=== PATIENT | male | born 1990 | race Caucasian/White ===

== ENCOUNTER 2023-11-06 21:29 | Emergency (ER) | payer MEDICAID ==
[~2023-11-06] VITALS: Ht 177.8 cm; Wt 78.3 kg
[2023-11-06 21:31] VITALS: BP 156/98; PULSE 93; RESP 17; TEMP 97.1; O2SAT 100
== END 2023-11-06 23:12 | disposition left against medical advice (07) ==
LOC: ER 21:30
DX: R07.81 Pleurodynia (principal); Z53.21 Procedure and treatment not carried out due to patient leaving prior to being seen by health care provider
CPT/HCPCS: 99281

== ENCOUNTER 2025-05-19 09:57 | Emergency (ER) | payer MEDICAID ==
[~2025-05-19] VITALS: Ht 177.8 cm; Wt 84.5 kg
[2025-05-19 10:38] LABS: MEAN PLATELET VOLUME 8.5 FL (7.4-10.4); RED CELL DISTRIBUTION WIDTH 13.1 % (11.5-14.5)
[2025-05-19 10:52] LABS: CREATININE 0.98 MG/DL (0.60-1.10); TOTAL CARBON DIOXIDE 25.3 MMOL/L (24-32); eCRCL 112 ML/MIN; eGFR 89 ML/MIN
--- NOTE | 2025-05-19 11:03 | Physician Documentation ---
History of Present Illness Chief Complaint: Flank Pain Stated Complaint: L SIDE FLANK PAIN Time Seen by MD: 10:50 HPI 34-year-old male presenting with left-sided abdominal pain that has been ongoing for the past three days. Patient states that he woke up at 3:00 a.m. three nights ago with this pain. It is on the left side of his abdomen and does not radiate. He states that it will worsen with changing of position. Also when he presses down on his abdomen he states that it will be very painful. He otherwise denies any constipation, diarrhea, nausea, vomiting or any other associated symptoms. Medication Reconciliation Allergies: Coded Allergies: No Known Allergies (Unverified , 11/06/23) Past Medical History Past Medical History: No Pertinent History Review of Systems All Other Systems at this time: Reviewed and Negative Physical Exam Vital Signs: Temperature: 98.7, Source: Temporal, Heart Rate: 97, Respiratory Rate: 18, Pulse Oximetry: 97, Weight: 84.450 Oxygen Flow Rate: 0 Physical Exam I have reviewed the triage vitals. CONST: Well developed and well nourished. In no acute distress HENT: Head Atraumatic EYES: Pupils are equal, round and reactive to light. Normal conjunctiva NECK: Normal range of motion. Supple. CARDIO: Normal rate and regular rhythm. No murmurs, rubs, or gallops. S1, S2. PULM/CHEST: No respiratory distress. Lungs clear to auscultation. No wheeze ABD: Soft. Tenderness to palpation over the left side of the abdomen in the area between the left upper and left lower quadrants. Nondistended. Bowel sounds normal. No guarding. : Exam deferred MSK: No edema. No deformity. NEURO: Alert and oriented to person, place and time. Moving all extremities SKIN: Warm and dry. PSYCH: Normal mood and affect. Good eye contact. Progress Results/Orders Results/Orders Orders - GERALD VIGIL MD Urinalysis, Cult If Indicated (05/19/25 10:15) Troponin (Single) (05/19/25 11:00) Electrocardiogram (05/19/25 ) Ct Abdomen Pelvis (05/19/25 ) Completed Orders - GERALD VIGIL MD Cbc/Diff (05/19/25 10:15) BMP (05/19/25 10:15) Lipase (05/19/25 10:15) CMP (05/19/25 10:15) Vital Signs 05/19/25 10:09 Temp 98.7 Pulse 97 Resp 18 Pulse Ox 97 O2 Flow Rate 0 Laboratory Tests Test 05/19/25 10:28 White Blood Count 10.6 Red Blood Count 4.66 L Hemoglobin 16.1 Hematocrit 46.4 Mean Corpuscular Volume 99.6 H Mean Corpuscular Hemoglobin 34.5 H Mean Corpuscular Hemoglobin Concent 34.7 Red Cell Distribution Width 13.1 Platelet Count 308 Mean Platelet Volume 8.5 Neutrophils (%) (Auto) 75.1 H Lymphocytes (%) (Auto) 15.2 L Monocytes (%) (Auto) 7.2 Eosinophils (%) (Auto) 2.1 Basophils (%) (Auto) 0.4 Neutrophils # (Auto) 7.9 H Lymphocytes # (Auto) 1.6 Monocytes # (Auto) 0.8 Eosinophils # (Auto) 0.2 Basophils # (Auto) 0.0 CBC Comment Sodium Level 139 Potassium Level 3.8 Chloride Level 105 Carbon Dioxide Level 25.3 Anion Gap 9 Blood Urea Nitrogen 9 Creatinine 0.98 Estimated GFR/1.73 m2 89 BUN/Creatinine Ratio 9.2 L Glucose Level 87 Calcium Level 8.9 Total Bilirubin 0.4 Aspartate Amino Transf (AST/SGOT) 25 Alanine Aminotransferase (ALT/SGPT) 38 Alkaline Phosphatase 92 Total Protein 8.1 Albumin 3.8 Globulin 4.3 Albumin/Globulin Ratio 0.9 L Lipase 54 Chemistry Comments EKG/XRAY/CT/US/VASC/MRI EKG : Additional Comment EKG as interpreted by ED MD indicating normal sinus rhythm with a rate of 80 beats per minute, no ischemia, normal axis CT : Impression Indication: Left LQ pain x 3 days Technique: CT axial images of the abdomen and pelvis are obtained with intravenous contrast. Coronal and sagittal reformats were obtained. Radiation Dose Information: CTDI volume is 17 mGy. Dose-length product is 854 mGy*cm Comparison: None FINDINGS: The lung bases demonstrate atelectasis. Adrenal glands, spleen, pancreas and liver unremarkable in shape. Gallbladder contracted. No hydronephrosis/ nephrolithiasis. Stomach is partially distended. Small bowel loops are normal in caliber. Large bowel normal in caliber. Moderate volume stool in the colon. Appendix removed. There is inflammatory stranding of the fat surrounding the ascending colon. Bladder is distended. No free pelvic fluid. No inguinal lymphadenopathy. There is no aggressive osseous process. IMPRESSION: Inflammatory stranding of the fat surrounding the ascending colon consistent with intraperitoneal focal fat infarction. Other considerations felt to be less likely would include colitis. Other findings as described. Medical Decision Making Additional Comments 34-year-old male presenting with left-sided abdominal pain. His lab workup is unremarkable. EKGs normal. CT of the abdomen and pelvis did indicate a area of fat stranding indicating focal fat infarction of the omentum surrounding the colon. This is likely the source of the patient's pain. This is a self- limiting and benign condition that is self resolving. I educated the patient on the findings. Advised him to monitor his symptoms for improvement and resolution. He is to take ibuprofen or Tylenol as needed. He was instructed to return immediately to the ED with any acutely worsening symptoms. Departure Disposition: 01 HOME / SELF CARE / HOMELESS Impression: Primary Impression: Abdominal pain Additional Impression: Fat inflammation Condition: Stable Additional Instructions: Monitor your symptoms for improvement and resolution. Your condition is a benign condition that will resolve on its own. You may take Tylenol or ibuprofen as needed for the pain. Return to the ED with any acutely worsening symptoms. Referrals: NO PRIMARY CARE PROVIDER (PCP) Signature Scribe Signature: 1 Attestation: 1 GERALD VIGIL MD May 19, 2025 11:03
--- NOTE | 2025-05-19 11:11 | ELECTROCARDIOGRAPH REPORT ---
[facility] Test Date: 2025-05-19 Test Time: 11:09:00 Pat Name: TOMASA ROYAL Department: EMERGENCY ROOM Room: Gender: M Tag Clerk: KRISTIAN : 1990 Requested By: GERALD VIGIL Order Number: [id number] Reading MD: Measurements Intervals [place] Rate: 80 P: 26 MD: 172 QRS: 80 QRSD: 86 T: 27 QT: 340 QTc: 393 Interpretive Statements Sinus rhythm ST elev, probable normal early repol pattern Baseline wander in lead(s) V2 Please click the below link to view image of tracing.
--- NOTE | 2025-05-19 12:03 | RADIOLOGY REPORT ---
Indication: Left LQ pain x 3 days Technique: CT axial images of the abdomen and pelvis are obtained with intravenous contrast. Coronal and sagittal reformats were obtained. Radiation Dose Information: CTDI volume is 17 mGy. Dose-length product is 854 mGy*cm Comparison: None FINDINGS: The lung bases demonstrate atelectasis. Adrenal glands, spleen, pancreas and liver unremarkable in shape. Gallbladder contracted. No hydronephrosis/ nephrolithiasis. Stomach is partially distended. Small bowel loops are normal in caliber. Large bowel normal in caliber. Moderate volume stool in the colon. Appendix removed. There is infla mmatory stranding of the fat surrounding the ascending colon. Bladder is distended. No free pelvic fluid. No inguinal lymphadenopathy. There is no aggressive osseous process. IMPRESSION: Inflammatory stranding of the fat surrounding the ascending colon consistent with intraperitoneal fo miguel ángel fat infarction. Other considerations felt to be less likely would include colitis. Other findings as described.
[2025-05-19 12:24] LABS: LEUKOCYTE ESTERASE ,URINE NEGATIVE (Neg); NITRITES, URINE NEGATIVE (Neg); OCCULT BLOOD,URINE NEGATIVE (Neg)
[2025-05-19 12:25] LABS: UA COLLECTION TYPE VOIDED
[2025-05-19 12:29] VITALS: BP 123/81; PULSE 97; RESP 14; TEMP 98.7; O2SAT 97
== END 2025-05-19 12:32 | disposition home or self-care (01) ==
LOC: ER 09:58
DX: R10.9 Unspecified abdominal pain (principal); K51.40 Inflammatory polyps of colon without complications
CPT/HCPCS: 36415; 74176; 80053; 81003; 83690; 84484; 85025; 93005; 99284